=== PATIENT | male | born 1975 | race Two or more races ===

== ENCOUNTER 2016-04-05 19:01 | Emergency (ER) | payer MEDICAID ==
[~2016-04-05] VITALS: Ht 167.6 cm; Wt 81.6 kg
[~2016-04-05 19:01] MED LIST: IBUPROFEN600 MG ORAL; NKM
[2016-04-05 19:23] VITALS: BP 134/90
[2016-04-05] MEDS ORDERED: IBUPROFEN600 MG ORAL (20:30)
[2016-04-05] MEDS ORDERED: TRAMADOL HCL50 MG ORAL (20:30)
[2016-04-05 20:34] VITALS: BP 120/76
--- NOTE | 2016-04-05 22:47 | Emergency Room Report ---
History of Present Illness General Chief Complaint: Multiple Trauma/Fall Source: Patient Present Illness HPI The patient is a 40 yo M presenting for r mid back pain which occurred after falling backwards onto the edge of a stair. The patient denies hitting any other part of his body including his head and denies LOC. The patient states the pain is a 9/10 dull ache to this area and does not radiate. The patient states pain is worse with twisting motion and deep breaths. The patient denies trying any medications for this pain and denies SOB, CP, hemoptysis, cough, numbness/tingling, rash, dysuria, hematuria Allergies: Coded Allergies: No Known Allergies (Unverified , 04/28/12) Patient History Past Medical History: see triage record Pertinent Family History: none Reviewed Nursing Documentation: PMH: Agreed, PSxH: Agreed Nursing Documentation-PMH Past Medical History: No Stated History Review of Systems All Other Systems: negative except mentioned in HPI Physical Exam Vital Signs Date Time Temp Pulse Resp B/P Pulse Ox O2 Delivery O2 Flow Rate FiO2 04/05/16 19:13 98.1 91 18 134/90 98 Room Air Sp02 EP Interpretation: reviewed, normal General Appearance: no apparent distress, alert, GCS 15, non-toxic Head: normocephalic, atraumatic Eyes: bilateral eye PERRL, bilateral eye normal inspection ENT: hearing grossly normal, normal pharynx, no angioedema, normal voice Neck: full range of motion, supple/symm/no masses Respiratory: normal inspection, lungs clear, normal breath sounds, no wheezing , speaking full sentences, other - TTP over R posterior thoracic ribs, chest symmetrical Cardiovascular #1: regular rate, rhythm, no edema Gastrointestinal: normal bowel sounds, non tender, soft, non-distended, no guarding, no rebound Musculoskeletal: digits/nails normal, gait/station normal, normal range of motion, non-tender Neurologic: alert, oriented x3, responsive, motor strength/tone normal, sensory intact, normal gait, speech normal Psychiatric: judgement/insight normal, memory normal, mood/affect normal, no suicidal/homicidal ideation Skin: normal color, no rash, warm/dry, well hydrated Lymphatic: no adenopathy Medical Decision Making PA Attestation Dr. Bailey is my supervising physician. Patient management was discussed with my supervising physician Diagnostic Impression: Primary Impression: Contusion of rib on right side ER Course The patient is a 40 yo M presenting for r mid back pain which occurred after falling backwards onto the edge of a stair. Ddx considered include but not limited to sprain/strain, fracture, contusion, pneumothorax PE: vitals WNL. NAD There is TTP over the R posterior mid thoracic ribs. No midline TTP. Full AROM. Normal breath sounds. No ecchymosis. Xrays of ribs unremarkable. The patient will be DE'ed home with a prescription for motrin and tramadol. ER precautions given Other X-Ray Diagnostic Results Other X-Ray Diagnostic Results : X-Ray Ordered: R ribs Date: Apr 05, 2016 EP Interpretation: Yes Findings: no fractures, no dislocation, no soft tissue swelling Number of Views: 4 PA Scribe Text I'm acting as scribe for my supervising physician. My supervising physician's interpretation of the R rib xrays are there are no fractures, dislocations or soft tissue swelling. Last Vital Signs Date Time Temp Pulse Resp B/P Pulse Ox O2 Delivery O2 Flow Rate FiO2 04/05/16 20:34 98.0 04/05/16 20:34 80 14 120/76 100 Room Air Status: improved Disposition: HOME, SELF-CARE Condition: Improved Scripts Tramadol Hcl* (ULTRAM*) 50 Mg Tablet 50 MG ORAL Q6H Y for For Pain, #15 TAB 0 Refills Prov: ALEXIS HESS P.A. 04/05/16 Ibuprofen* (MOTRIN*) 600 Mg Tablet 600 MG ORAL Q8H Y for For Pain, #30 TAB 0 Refills Prov: ALEXIS HESS P.A. 04/05/16 Patient Instructions: Rib Contusion Additional Instructions: I discussed my findings with the patient. All questions and concerns have been answered. Treatment and medication compliance have been addressed. I advised the patient that they need to follow up with PMD in 3-5 days. Return to ED if pain remains or worsens, numbness or tingling occurs, new rash is noticed, fever is noticed, or if needed for any reason. Patient verbalized understanding of discharge instructions. ALEXIS HESS Apr 05, 2016 22:47
--- NOTE | 2016-04-06 10:25 | Diagnostic Imaging Report ---
Indications: Right rib cage pain. Technique: 4 views of the right ribs. Findings: Comparison: None. No fracture, lytic destruction, periosteal reaction, or other acute skeletal changes are identified. The overlying chest wall soft tissues, underlying pleura and pulmonary parenchyma are unremarkable. IMPRESSION: Negative right rib series.
== END 2016-04-05 20:37 | disposition home or self-care (01) ==
LOC: EMR 19:31
DX: S20.211A Contusion of right front wall of thorax, initial encounter (principal); W10.9XXA Fall (on) (from) unspecified stairs and steps, initial encounter; Y93.9 Activity, unspecified; Y92.9 Unspecified place or not applicable
CPT/HCPCS: 99284

== ENCOUNTER 2019-01-31 17:18 | Inpatient (IN) | payer MEDICAID ==
[~2019-01-31] VITALS: Ht 165.1 cm; Wt 81.6 kg
[~2019-01-31 17:18] MED LIST changes: +TRAMADOL HCL50 MG ORAL
[2019-01-31 17:24] VITALS: BP 127/86
--- NOTE | 2019-01-31 17:32 | NUR ---
ED Nurse Note: patient walked into ED from home c/o diffuse abdominal pain, non-radiating, denies v/d, c/o nasuea since last night. patient is alert awake x4 ambulatory, breathing unlabored and even, speaking in full sentences.
[2019-01-31] MEDS ORDERED: Morphine Sulfate 4mg/ml Inj (IV USE ONLY) IVP ONE (17:45)
[2019-01-31] MEDS ORDERED: Omnipaque-300 100ml vial INJ PRN (17:45)
[2019-01-31] MEDS ORDERED: DiphenhydrAMINE 50mg/ml Inj IVP ONE (17:45)
[2019-01-31 17:56] LABS: APPEARANCE,URINE SLIGHTLY CLOUDY; BILIRUBIN, URINE NEGATIVE (NEGATIVE); GLUCOSE, URINE (UA) NEGATIVE (NEGATIVE); KETONES,URINE 3+ (NEGATIVE); LEUKOCYTE ESTERASE ,URINE NEGATIVE (NEGATIVE); NITRITE,URINE NEGATIVE (NEGATIVE); PH,URINE 5 (4.5-8.0); PROTEIN,URINE 2+ (NEGATIVE); UROBILINOGEN,URINE NORMAL MG/DL (0.0-1.0)
[2019-01-31 17:57] LABS: HEMATOCRIT 45.2 % (42.0-52.0); HEMOGLOBIN 16.6 G/DL (14.2-18.0); MEAN CORPUSCULAR VOLUME 84 FL (80-99); PLATELET COUNT 257 K/UL (150-450); RED BLOOD COUNT 5.39 M/UL (4.70-6.10); RED CELL DISTRIBUTION WIDTH 9.5 % (11.6-14.8)
[2019-01-31 18:09] LABS: COLOR,URINE AMBER
--- NOTE | 2019-01-31 18:10 | Emergency Room Report ---
History of Present Illness General Chief Complaint: Abdominal Pain Source: Patient Present Illness HPI Patient presents with complaints of diffuse abdominal pain and vomiting ongoing since yesterday Denies any diarrhea denies any chest pain or shortness of breath pain is 10 out of 10 Patient is not able to localize the pain denies any back or flank pain denies any recent trauma He thinks he might have eaten something bad Denies any recent travel denies any rash He felt subjectively warm Denies any blood in the stool Allergies: Coded Allergies: No Known Allergies (Unverified , 04/28/12) Patient History Past Medical History: see triage record Reviewed Nursing Documentation: PMH: Agreed; PSxH: Agreed Nursing Documentation-PMH Past Medical History: No Stated History Review of Systems All Other Systems: negative except mentioned in HPI Physical Exam Vital Signs Date Time Temp Pulse Resp B/P (MAP) Pulse Ox O2 Delivery O2 Flow Rate FiO2 01/31/19 17:24 98.6 79 16 127/86 96 Room Air Sp02 EP Interpretation: reviewed, normal General Appearance: mild distress - Appears uncomfortable Head: normocephalic, atraumatic Eyes: bilateral eye PERRL, bilateral eye EOMI ENT: hearing grossly normal, normal pharynx, TMs + canals normal, uvula midline Neck: full range of motion, supple, no meningismus, no bony tend Respiratory: lungs clear, normal breath sounds, no rhonchi, no respiratory distress, no retraction, no accessory muscle use Cardiovascular #1: normal peripheral pulses, regular rate, rhythm, no edema, no gallop, no JVD, no murmur Gastrointestinal: normal bowel sounds, non tender - On palpation however patient points diffusely for the discomfort, soft, no mass, no organomegaly, non -distended, no guarding, no hernia, no pulsatile mass, no rebound Genitourinary: no CVA tenderness Musculoskeletal: normal inspection Neurologic: motor strength/tone normal, courtesy driver III-XII nml as tested, oriented x3 , sensory intact, responsive Psychiatric: mood/affect normal Skin: no rash Lymphatic: normal inspection, no adenopathy Procedures Critical Care Time Critical Care Time 40 minutes for presentation and diagnosis with life-threatening pathology discussion with family and patient, not including any procedural time Medical Decision Making Diagnostic Impression: Primary Impression: Acute appendicitis ER Course With the history exam and presentation, multiple differentials considered, including but not limited to appendicitis, gastritis, cholecystitis, diverticulitis Patient's white blood cell count is elevated CT at this time does reveal findings concerning for acute appendicitis Patient receiving further hydration General surgery has seen the patient in the ER and patient admitted for further care Labs Test 01/31/19 17:42 White Blood Count 15.0 K/UL (4.8-10.8) Red Blood Count 5.39 M/UL (4.70-6.10) Hemoglobin 16.6 G/DL (14.2-18.0) Hematocrit 45.2 % (42.0-52.0) Mean Corpuscular Volume 84 FL (80-99) Mean Corpuscular Hemoglobin 30.8 PG (27.0-31.0) Mean Corpuscular Hemoglobin Concent 36.7 G/DL (32.0-36.0) Red Cell Distribution Width 9.5 % (11.6-14.8) Platelet Count 257 K/UL (150-450) Mean Platelet Volume 6.3 FL (6.5-10.1) Neutrophils (%) (Auto) % (45.0-75.0) Lymphocytes (%) (Auto) % (20.0-45.0) Monocytes (%) (Auto) % (1.0-10.0) Eosinophils (%) (Auto) % (0.0-3.0) Basophils (%) (Auto) % (0.0-2.0) Urine Color Kallie Urine Appearance Slightly cloudy Urine pH 5 (4.5-8.0) Urine Specific [place] 1.025 (1.005-1.035) Urine Protein 2+ (NEGATIVE) Urine Glucose (UA) Negative (NEGATIVE) Urine Ketones 3+ (NEGATIVE) Urine Blood Negative (NEGATIVE) Urine Nitrite Negative (NEGATIVE) Urine Bilirubin Negative (NEGATIVE) Urine Ictotest Negative (NEGATIVE) Urine Urobilinogen Normal MG/DL (0.0-1.0) Urine Leukocyte Esterase Negative (NEGATIVE) Urine RBC 0 /HPF (0 - 0) Urine WBC 0-2 /HPF (0 - 0) Urine Squamous Epithelial Cells None /LPF (NONE/OCC) Urine Amorphous Sediment Many /LPF (NONE) Urine Bacteria Moderate /HPF (NONE) Urine Mucus Moderate /LPF (NONE/OCC) Sodium Level 137 MMOL/L (136-145) Potassium Level 3.9 MMOL/L (3.5-5.1) Chloride Level 100 MMOL/L (98-107) Carbon Dioxide Level 29 MMOL/L (21-32) Anion Gap 8 mmol/L (5-15) Blood Urea Nitrogen 14 mg/dL (7-18) Creatinine 0.9 MG/DL (0.55-1.30) Estimat Glomerular Filtration Rate > 60 mL/min (>60) Glucose Level 113 MG/DL (74-106) Calcium Level 9.1 MG/DL (8.5-10.1) Total Bilirubin 0.9 MG/DL (0.2-1.0) Aspartate Amino Transf (AST/SGOT) 23 U/L (15-37) Alanine Aminotransferase (ALT/SGPT) 56 U/L (12-78) Alkaline Phosphatase 94 U/L (46-116) Total Protein 8.2 G/DL (6.4-8.2) Albumin 4.2 G/DL (3.4-5.0) Globulin 4.0 g/dL Albumin/Globulin Ratio 1.0 (1.0-2.7) Lipase 64 U/L (73-393) Urine Opiates Screen Negative (NEGATIVE) Urine Barbiturates Screen Negative (NEGATIVE) Phencyclidine (PCP) Screen Negative (NEGATIVE) Urine Amphetamines Screen Negative (NEGATIVE) Urine Benzodiazepines Screen Negative (NEGATIVE) Urine Cocaine Screen Negative (NEGATIVE) Urine Marijuana (THC) Screen Negative (NEGATIVE) Rhythm Strip Diag. Results EP Interpretation: yes Rate: 80 Rhythm: NSR, no PVC's, no ectopy CT/MRI/US Diagnostic Results CT/MRI/US Diagnostic Results : Impression CT abdomen pelvisImpression: -Prominent appendiceal caliber 1 cm, with periappendiceal stranding, and appendiceal base appendicolith cyst with uncomplicated acute appendicitis. -Small and large bowel liquid contents as well as scattered areas of possible minimal small bowel wall thickening involving the distal/terminal ileum best seen axial images 70-72 with suggestion of tiny stranding around the terminal ileum likely due to adjacent acute appendicitis. This could be incidental, but can also be seen with an infectious or inflammatory enterocolitis, and can be correlated with clinical presentation. -Hepatic steatosis, correlate to exclude steatohepatitis. -Bibasilar atelectasis. Last Vital Signs Date Time Temp Pulse Resp B/P (MAP) Pulse Ox O2 Delivery O2 Flow Rate FiO2 12/11/19 17:56 79 16 Room Air 01/31/19 17:24 98.6 127/86 (100) 96 Status: improved Disposition: ADMITTED INPATIENT Condition: Serious Jaleesa Whitlock DO Jan 31, 2019 18:10
[2019-01-31 18:20] LABS: ANION GAP 8 mmol/L (5-15); BLOOD UREA NITROGEN 14 mg/dL (7-18); CALCIUM 9.1 MG/DL (8.5-10.1); CARBON DIOXIDE 29 MMOL/L (21-32); CHLORIDE 100 MMOL/L (98-107); CREATININE 0.9 MG/DL (0.55-1.30); POTASSIUM 3.9 MMOL/L (3.5-5.1); SODIUM 137 MMOL/L (136-145)
[2019-01-31 18:24] LABS: ALANINE AMINOTRANSFERASE 56 U/L (12-78); ALBUMIN 4.2 G/DL (3.4-5.0); ALKALINE PHOSPHATASE 94 U/L (46-116); ASPARTATE AMINO TRANSFERASE 23 U/L (15-37); BILIRUBIN,TOTAL 0.9 MG/DL (0.2-1.0)
--- NOTE | 2019-01-31 19:08 | Diagnostic Imaging Report ---
Indication: Abdominal pain Technique: CT of the abdomen and pelvis utilizing automated exposure control with intravenous contrast. Venous scanning performed. Axial, sagittal and coronal reformats presented. CT dose: Total DLP 1656.3 mGycm; CTDI vol 26.2 mGy Comparison: None Findings: Dependent atelectatic changes noted in the lung bases. Heart size appears within the upper limits for normal. No pericardial effusion. There is decreased attenuation of the liver relative to the spleen suggesting hepatic steatosis. Hepatic contour is smooth. No focal hepatic mass lesion appreciated. Hepatic veins and portal veins are patent. There are no CT evident gallstones, pericholecystic inflammatory changes or biliary duct dilatation. Spleen, adrenal glands and pancreas unremarkable in appearance. Kidneys enhance symmetrically. There is no urinary tract stone, hydronephrosis or perinephric stranding. Bladder is unremarkable for degree of underdistention. There is abnormal enlargement of the appendix measuring up to 11 mm at the base (axial images 61-67). There is hyperenhancement of the wall and some periappendiceal inflammatory changes. Findings are compatible with an acute appendicitis. There is a probable appendicolith at the base of the appendix. There is no evidence of abscess formation. No evidence of free intraperitoneal air. No small bowel obstruction. The abdominal aorta is normal in caliber. Some small mesenteric lymph nodes are noted, many cluster the right lower quadrant. These are likely reactive in etiology. No acute osseous abnormality identified. There are mild degenerative changes of the lower lumbar spine. No subcutaneous fluid collection or abscess. IMPRESSION: * Findings compatible with an acute appendicitis as above. No evidence of abscess formation or perforation. * Findings suggesting hepatic steatosis. This corresponds with the preliminary report by the teleradiology service. The CT scanner at [facility] is accredited by the [employer] and the scans are performed using protocols designed to limit radiation exposure to as low as reasonably achievable to attain images of sufficient resolution adequate for diagnostic evaluation.
--- NOTE | 2019-01-31 19:21 | NUR ---
HAND-OFF: Report given to Alyssia MURRAY.
--- NOTE | 2019-01-31 19:42 | Consultation ---
History of Present Illness General Date patient seen: Jan 31, 2019 Reason for Hospitalization: Abdominal Pain Present Illness HPI 43M otherwise healthy presented to ED at [facility] c/o abdominal pain for 1 days. States pain began yesterday generalized abdominal cramping 6-8/10 without radiation. nausea but no emesis. anorexia from pain. in ED noted to have leukocytosis and CT consistent with acute appy. surgery called to evaluate. patient seen, chart reviewed, patient examined. Allergies: Coded Allergies: No Known Allergies (Unverified , 04/28/12) Medication History Scheduled No Known Medications* (NKM - No Known Medications*), 0 ., (Reported) Scheduled PRN Ibuprofen* (Motrin*), 600 MG ORAL Q8H PRN for For Pain Tramadol Hcl* (Ultram*), 50 MG ORAL Q6H PRN for For Pain Patient History History Provided By: Patient Healthcare decision maker Resuscitation status Advanced Directive on File Past Medical/Surgical History Past Medical/Surgical History: (1) Acute appendicitis (2) Sprain of knee (3) Contusion of knee (4) Contusion of rib on right side Review of Systems Review of Symptoms General ROS: no weight loss or fever Psychological ROS: no depression or mood changes, no memory loss Ophthalmic ROS: no visual changes or eye irritation ENT ROS: no nasal congestion, hearing loss, dizziness Allergy and Immunology ROS: no allergic symptoms or urticaria Hematological and Lymphatic ROS: no swollen glands, unusual bleeding or bruising Endocrine ROS: no polyuria, polydipsia, weight changes, temperature intolerance Respiratory ROS: no cough, shortness of breath, or wheezing Cardiovascular ROS: no chest pain or dyspnea on exertion Gastrointestinal ROS: abdominal pain, bright red blood in stool. Musculoskeletal ROS: no myalgias or arthralgias Neurological ROS: no TIA or stroke symptoms Dermatological ROS: no new or changing skin lesions, rashes or pruritis Physical Exam Physical Exam General appearance: alert, cooperative, no distress, appears stated age Head: Normocephalic, without obvious abnormality, atraumatic Eyes: conjunctivae/corneas clear. PERRL, EOM's intact. Fundi benign Throat: Lips, mucosa, and tongue normal. Teeth and gums normal Neck: supple, symmetrical, trachea midline, no adenopathy, thyroid: not enlarged, symmetric, no tenderness/mass/nodules, no carotid bruit and no JVD Lungs: clear to auscultation bilaterally Heart: regular rate and rhythm, S1, S2 normal, no murmur, click, rub or gallop Abdomen: soft, RLQ-tender with guarding, no rebound. Bowel sounds normal. No masses, no organomegaly Extremities: extremities normal, atraumatic, no cyanosis or edema Pulses: 2+ and symmetric Skin: Skin color, texture, turgor normal. No rashes or lesions Neurologic: Grossly normal Last 24 Hour Vital Signs Date Time Temp Pulse Resp B/P (MAP) Pulse Ox O2 Delivery O2 Flow Rate FiO2 01/31/19 18:18 98.6 01/31/19 17:56 79 16 Room Air 01/31/19 17:24 98.6 79 16 127/86 (100) 96 Room Air 01/31/19 17:24 98.6 79 16 127/86 96 Room Air Laboratory Tests Test 01/31/19 17:42 White Blood Count 15.0 K/UL (4.8-10.8) H Red Blood Count 5.39 M/UL (4.70-6.10) Hemoglobin 16.6 G/DL (14.2-18.0) Hematocrit 45.2 % (42.0-52.0) Mean Corpuscular Volume 84 FL (80-99) Mean Corpuscular Hemoglobin 30.8 PG (27.0-31.0) Mean Corpuscular Hemoglobin Concent 36.7 G/DL (32.0-36.0) H Red Cell Distribution Width 9.5 % (11.6-14.8) L Platelet Count 257 K/UL (150-450) Mean Platelet Volume 6.3 FL (6.5-10.1) L Neutrophils (%) (Auto) % (45.0-75.0) Lymphocytes (%) (Auto) % (20.0-45.0) Monocytes (%) (Auto) % (1.0-10.0) Eosinophils (%) (Auto) % (0.0-3.0) Basophils (%) (Auto) % (0.0-2.0) Neutrophils % (Manual) Pending Lymphocytes % (Manual) Pending Platelet Estimate Pending Platelet Morphology Pending Urine Color Kallie Urine Appearance Slightly cloudy Urine pH 5 (4.5-8.0) Urine Specific [place] 1.025 (1.005-1.035) Urine Protein 2+ (NEGATIVE) H Urine Glucose (UA) Negative (NEGATIVE) Urine Ketones 3+ (NEGATIVE) H Urine Blood Negative (NEGATIVE) Urine Nitrite Negative (NEGATIVE) Urine Bilirubin Negative (NEGATIVE) Urine Ictotest Negative (NEGATIVE) Urine Urobilinogen Normal MG/DL (0.0-1.0) Urine Leukocyte Esterase Negative (NEGATIVE) Urine RBC 0 /HPF (0 - 0) Urine WBC 0-2 /HPF (0 - 0) Urine Squamous Epithelial Cells None /LPF (NONE/OCC) Urine Amorphous Sediment Many /LPF (NONE) H Urine Bacteria Moderate /HPF (NONE) H Urine Mucus Moderate /LPF (NONE/OCC) H Sodium Level 137 MMOL/L (136-145) Potassium Level 3.9 MMOL/L (3.5-5.1) Chloride Level 100 MMOL/L (98-107) Carbon Dioxide Level 29 MMOL/L (21-32) Anion Gap 8 mmol/L (5-15) Blood Urea Nitrogen 14 mg/dL (7-18) Creatinine 0.9 MG/DL (0.55-1.30) Estimat Glomerular Filtration Rate > 60 mL/min (>60) Glucose Level 113 MG/DL (74-106) H Calcium Level 9.1 MG/DL (8.5-10.1) Total Bilirubin 0.9 MG/DL (0.2-1.0) Aspartate Amino Transf (AST/SGOT) 23 U/L (15-37) Alanine Aminotransferase (ALT/SGPT) 56 U/L (12-78) Alkaline Phosphatase 94 U/L (46-116) Total Protein 8.2 G/DL (6.4-8.2) Albumin 4.2 G/DL (3.4-5.0) Globulin 4.0 g/dL Albumin/Globulin Ratio 1.0 (1.0-2.7) Lipase 64 U/L (73-393) L Urine Opiates Screen Negative (NEGATIVE) Urine Barbiturates Screen Negative (NEGATIVE) Phencyclidine (PCP) Screen Negative (NEGATIVE) Urine Amphetamines Screen Negative (NEGATIVE) Urine Benzodiazepines Screen Negative (NEGATIVE) Urine Cocaine Screen Negative (NEGATIVE) Urine Marijuana (THC) Screen Negative (NEGATIVE) Height (Feet): 5 Height (Inches): 5.00 Weight (Pounds): 180 Medications Current Medications Medications (Trade) Dose Ordered Sig/Noa Route PRN Reason Start Time Stop Time Status Last Admin Dose Admin Iohexol (OMNIPAQUE-300 100ml) 100 ml NOW PRN INJ Radiology Procedure 01/31/19 17:45 02/02/19 17:34 Assessment/Plan Problem List: (1) Acute appendicitis Assessment & Plan: acute uncomplicated appendicitis afebrile, HD Stable leukocytosis RLQ tender CT consistent with acute appy npo iv fluids iv abx consent to OR for lap vs open appy thank you ICD Codes: K35.80 - Unspecified acute appendicitis SNOMED: [id number] Kwan Boggs Jan 31, 2019 19:42
--- NOTE | 2019-01-31 19:44 | Pre-Procedure Note/Attestation ---
Pre-Procedure Note/Attestation Complete Prior to Procedure Procedure Narrative: laparoscopic appendectomy possible open Indications for Procedure Pre-Operative Diagnosis: acute appendicitis Attestation I attest that I discussed the nature of the procedure; its benefits; risks and complications; and alternatives (and the risks and benefits of such alternatives ), prior to the procedure, with the patient (or the patient's legal senior human resources representative). I attest that, if there was a reasonable possibility of needing a blood transfusion, the patient (or the patient's legal senior human resources representative) was given the [facility] standardized written summary, pursuant to the Sathya Ari Blood Safety Act ([place] Health and Safety Code # 1645, as amended). I attest that I re-evaluated the patient just prior to the surgery and that there has been no change in the patient's H&P, except as documented below: Kwan Boggs Jan 31, 2019 19:44
[2019-01-31] MEDS ORDERED: Morphine Sulfate 4mg/ml Inj (IV USE ONLY) IVP PRN (19:45)
[2019-01-31] MEDS ORDERED: Morphine Sulfate 2mg/ml Inj(IV/IM USE ONLY) IVP PRN (19:45)
[2019-01-31] MEDS ORDERED: Mylanta II UD 30ml ORAL PRN (19:45)
[2019-01-31] MEDS ORDERED: Milk of Magnesia 30ml Ud ORAL PRN (19:45)
[2019-01-31] MEDS ORDERED: LORazepam 1mg tab ORAL PRN (19:45)
[2019-01-31 20:33] VITALS: BP 132/82
--- NOTE | 2019-01-31 20:38 | NUR ---
TRANSFER TO FLOOR: Patient transferred to [facility] as ordered, per . Report given to TREVOR Ring
--- NOTE | 2019-01-31 20:38 | NUR ---
ED Nurse Note: Report given to TREVOR Ring
--- NOTE | 2019-01-31 20:50 | NUR ---
NURSE NOTES: patient transferred the 3E from ER. Admission Assessment done. A/O x 4. Patient c/o abdominal pain and given pain medication as ordered. VS is stable. bed is lowest position. Call light within reach. Will continue to monitor.
[2019-01-31 21:00] VITALS: BP 114/73
[2019-01-31] MEDS ORDERED: cefTRIAXone 1 GM in D5W 55 ML IVPB SCH (22:00)
[2019-01-31] MEDS: Docusate 100mg cap ORAL SCH (22:03)
[2019-01-31] MEDS ORDERED: Piperacillin/Tazobactam 3.375 GM in NS 110 ML IVPB SCH (23:00)
[2019-01-31] MEDS: D5 1/2NS w/KCl 20mEq 1,000 ML IV SCH (23:45)
[2019-02-01] VITALS (17 sets, daily range): BP systolic 102–153; BP diastolic 64–88
[2019-02-01 05:57] LABS: BASOPHILS % (AUTO) 0.3 % (0.0-2.0); LYMPHOCYTES % (AUTO) 12.2 % (20.0-45.0); MEAN CORPUSCULAR VOLUME 87 FL (80-99); MONOCYTES % (AUTO) 6.4 % (1.0-10.0); PLATELET COUNT 242 K/UL (150-450); RED BLOOD COUNT 4.84 M/UL (4.70-6.10); RED CELL DISTRIBUTION WIDTH 10.6 % (11.6-14.8); WHITE BLOOD COUNT 15.5 K/UL (4.8-10.8)
[2019-02-01 06:07] LABS: ANION GAP 7 mmol/L (5-15); BLOOD UREA NITROGEN 12 mg/dL (7-18); CALCIUM 8.9 MG/DL (8.5-10.1); CARBON DIOXIDE 29 MMOL/L (21-32); CHLORIDE 103 MMOL/L (98-107); POTASSIUM 3.8 MMOL/L (3.5-5.1); SODIUM 139 MMOL/L (136-145)
--- NOTE | 2019-02-01 06:51 | NUR ---
NURSE NOTES: Patient is asleep. VS is stable. Got consents for surgery from patient. no c/o distress and pain level is 1/10. bed is lowest position. Call light within reach. Will continue to monitor.
--- NOTE | 2019-02-01 07:30 | NUR ---
NURSE NOTES: Pt lying in bed w/family at bedside, bed in lowest position, and call light within reach. Pt A&Ox4, VSS, and in no apparent distress. IV site intact/asymptomatic w/IVF infusing and skin intact. Pt scheduled to have surgery today but time not yet known. Will continue to monitor.
--- NOTE | 2019-02-01 07:35 | NUR ---
HAND-OFF: Report given to TREVOR Pérez. Pt in stable condition.
[2019-02-01] MEDS: D5 1/2NS w/KCl 20mEq 1,000 ML IV SCH ×2 (08:00→17:15)
[2019-02-01] MEDS: Docusate 100mg cap ORAL SCH ×2 (09:00→21:40)
--- NOTE | 2019-02-01 09:05 | Anethesia Preoperative Eval ---
Anesthesia Pre-op PMH/ROS General Date of Evaluation: Feb 01, 2019 Time of Evaluation: 09:06 Anesthesiologist: Zohreh Haywood CRNA ASA Score: ASA 2 Mallampati Score Class I : Soft palate, uvula, fauces, pillars visible Class II: Soft palate, uvula, fauces visible Class III: Soft palate, base of uvula visible Class IV: Only hard plate visible Mallampati Classification: Class II Surgeon: Ambrose Diagnosis: acute appendicitis Surgical Procedure: Laparoscopic appendectomy Anesthesia History: none Family History: no anesthesia problems Allergies: Coded Allergies: No Known Allergies (Unverified , 04/28/12) Medications: see eMAR Patient NPO?: Yes NPO Date: Jan 31, 2019 NPO Time: 0000 Past Medical History Cardiovascular: Denies: HTN, CAD, [place], valve dz, arrhythmia, other Pulmonary: Denies: asthma, COPD, AVILA, other Gastrointestinal/Genitourinary: Reports: other - acute appendicitis; Denies: GERD, CRI, ESRD Neurologic/Psychiatric: Denies: dementia, CVA, depression/anxiety, TIA, other Endocrine: Denies: DM, hypothyroidism, steroids, other HEENT: Denies: cataract (L), cataract (R), glaucoma, [place] (L), [place] (R), other Hematology/Immune: Denies: anemia, DVT, bleeding disorder, other Musculoskeletal/Integumentary: Denies: OA, RA, DJD, DDD, edema, other Other: obesity PMH Narrative: as noted above PSxH Narrative: eye surgery Anesthesia Pre-op Phys. Exam Physician Exam Last Vital Signs Date Time Temp Pulse Resp B/P (MAP) Pulse Ox O2 Delivery O2 Flow Rate FiO2 02/01/19 08:00 98.5 93 18 108/72 (84) 98 01/31/19 21:18 Room Air Constitutional: NAD Neurologic: other - alert and oriented Cardiovascular: RRR Respiratory: CTA Gastrointestinal: S/NT/ND Airway Exam Mallampati Score: Class II MO: full - heavy lewis Neck: FROM TMD: > 3 FB ROM: full Teeth: intact Dentures: no upper, no lower Anesthesia Pre-op A/P Labs Hematology Test 01/31/19 17:42 02/01/19 05:31 White Blood Count 15.0 K/UL (4.8-10.8) H 15.5 K/UL (4.8-10.8) H Red Blood Count 5.39 M/UL (4.70-6.10) 4.84 M/UL (4.70-6.10) Hemoglobin 16.6 G/DL (14.2-18.0) 15.0 G/DL (14.2-18.0) Hematocrit 45.2 % (42.0-52.0) 42.0 % (42.0-52.0) Mean Corpuscular Volume 84 FL (80-99) 87 FL (80-99) Mean Corpuscular Hemoglobin 30.8 PG (27.0-31.0) 31.0 PG (27.0-31.0) Mean Corpuscular Hemoglobin Concent 36.7 G/DL (32.0-36.0) H 35.8 G/DL (32.0-36.0) Red Cell Distribution Width 9.5 % (11.6-14.8) L 10.6 % (11.6-14.8) L Platelet Count 257 K/UL (150-450) 242 K/UL (150-450) Mean Platelet Volume 6.3 FL (6.5-10.1) L 6.6 FL (6.5-10.1) Neutrophils (%) (Auto) % (45.0-75.0) 81.0 % (45.0-75.0) H Lymphocytes (%) (Auto) % (20.0-45.0) 12.2 % (20.0-45.0) L Monocytes (%) (Auto) % (1.0-10.0) 6.4 % (1.0-10.0) Eosinophils (%) (Auto) % (0.0-3.0) 0.0 % (0.0-3.0) Basophils (%) (Auto) % (0.0-2.0) 0.3 % (0.0-2.0) Differential Total Cells Counted 100 Neutrophils % (Manual) 90 % (45-75) H Lymphocytes % (Manual) 8 % (20-45) L Monocytes % (Manual) 2 % (1-10) Eosinophils % (Manual) 0 % (0-3) Basophils % (Manual) 0 % (0-2) Band Neutrophils 0 % (0-8) Platelet Estimate Adequate Platelet Morphology Normal Red Blood Cell Morphology Normal Coagulation Test 02/01/19 05:31 Prothrombin Time 10.9 SEC (9.30-11.50) Prothromb Time International Ratio 1.0 (0.9-1.1) Activated Partial Thromboplast Time 29 SEC (23-33) Chemistry Test 01/31/19 17:42 02/01/19 05:31 Sodium Level 137 MMOL/L (136-145) 139 MMOL/L (136-145) Potassium Level 3.9 MMOL/L (3.5-5.1) 3.8 MMOL/L (3.5-5.1) Chloride Level 100 MMOL/L (98-107) 103 MMOL/L (98-107) Carbon Dioxide Level 29 MMOL/L (21-32) 29 MMOL/L (21-32) Anion Gap 8 mmol/L (5-15) 7 mmol/L (5-15) Blood Urea Nitrogen 14 mg/dL (7-18) 12 mg/dL (7-18) Creatinine 0.9 MG/DL (0.55-1.30) 1.0 MG/DL (0.55-1.30) Estimat Glomerular Filtration Rate > 60 mL/min (>60) > 60 mL/min (>60) Glucose Level 113 MG/DL (74-106) H 121 MG/DL (74-106) H Calcium Level 9.1 MG/DL (8.5-10.1) 8.9 MG/DL (8.5-10.1) Total Bilirubin 0.9 MG/DL (0.2-1.0) Aspartate Amino Transf (AST/SGOT) 23 U/L (15-37) Alanine Aminotransferase (ALT/SGPT) 56 U/L (12-78) Alkaline Phosphatase 94 U/L (46-116) Total Protein 8.2 G/DL (6.4-8.2) Albumin 4.2 G/DL (3.4-5.0) Globulin 4.0 g/dL Albumin/Globulin Ratio 1.0 (1.0-2.7) Lipase 64 U/L (73-393) L Risk Assessment & Plan Assessment: ASA 3, ok to proceed Plan: GETA Status Change Before Surgery: No Pre-Antibiotics Drug: TBD Given Within 1 Hr of Incision: Yes Koempel,Zohreh M[employer]IM[employer] TECHNICIAN Feb 01, 2019 09:05
[2019-02-01] MEDS ORDERED: Midazolam 2mg/2ml Inj ONE (09:13)
[2019-02-01] MEDS ORDERED: Lidocaine 1% MPF 10mg/ml 5ml ONE (09:13)
[2019-02-01] MEDS ORDERED: fentaNYL 100 mcg/2 mL IV ONE ×2 (09:13→09:45)
[2019-02-01] MEDS ORDERED: Propofol 200mg/20ml IV ONE (09:13)
[2019-02-01] MEDS: Piperacillin/Tazobactam 3.375 GM in NS 110 ML IVPB SCH ×2 (09:20→17:15)
[2019-02-01] MEDS ORDERED: Morphine Sulfate 10mg/ml Inj ONE (09:35)
--- NOTE | 2019-02-01 10:04 | Immediate Post-Op Evaluation ---
Immediate Post-Op Evalulation Immediate Post-Op Evalulation Procedure: Laparoscopic appendectomy Date of Evaluation: Feb 01, 2019 Time of Evaluation: 10:43 IV Fluids: LR 1000 ml Estimated Blood Loss: 30 Blood Pressure Systolic: 153 Blood Pressure Diastolic: 86 Pulse Rate: 108 Respiratory Rate: 24 O2 Sat by Pulse Oximetry: 100 Temperature (Fahrenheit): 100.2 Pain Score (1-10): 4 Nausea: No Vomiting: No Complications none Patient Status: awake, patent, extubated Hydration Status: adequate Drug: Zosyn 3.375 gm IV Given Within 1 Hr of Incision: Yes Time Given: 09:15 Zohreh Haywood CRNA Feb 01, 2019 10:04
[2019-02-01] MEDS ORDERED: Labetalol 5mg/ml 20ml vial IV PRN (10:15)
[2019-02-01] MEDS ORDERED: Hydromorphone 0.5mg/0.5ml inj IVP PRN (10:15)
--- NOTE | 2019-02-01 10:50 | Brief Operative Note ---
Immediate Post Operative Note Operative Note Pre-op Diagnosis: acute appendicitis Procedure: laparoscopic appendectomy Post-op Diagnosis: same as pre-op Surgeon: wood Anesthesiologist: ophelia Anesthesia: general, local Specimen: yes Complications: none Condition: stable Fluids: see records Estimated Blood Loss: minimal Drains: none Implant(s) used?: No Kwan Boggs Feb 01, 2019 10:50
[2019-02-01] MEDS ORDERED: Rocuronium Bromide 50mg/5ml Inj IV ONE (11:44)
--- NOTE | 2019-02-01 11:45 | NUR ---
NURSE NOTES: Pt came up to unit from PACU via hospital bed in stable condition. Pt A&Ox4; VSS; on 2L NC; and surgical lap sites x 3 C/D/I. Reoriented pt to room; pt has no complaints of pain at this time. Will continue to monitor.
--- NOTE | 2019-02-01 15:17 | NUR ---
CASE MANAGEMENT:REVIEW 43 YR OLD MALE PRESENTED TO ER CC: ABDOMINAL PAIN AND VOMITING SI: ACUTE APPENDICITIS 98.6 79 16 127/86 96% ON RA WBC=15.0 IS: IV ZOFRAN IV MORPHINE 1L NS BOLUS IV BENADRYL : TO MED/SURG 02/01/19 SI: ACUTE APPENDICITIS 98.0 97 18 102/69 97% ON RA WBC+15.5 IS: TO SURGERY FOR: LAPAROSCOPIC APPENDECTOMY IV ZOSYN Q8HRS IVF@100/HR IV PEPCID Q12 IV MORPHINE Q4HRS PRN : MED/SURG STATUS
--- NOTE | 2019-02-01 19:30 | NUR ---
NURSE NOTES: Received report from TREVOR Pérez. Patient is resting in bed with family at side. Fluids running to IV intact and asymptomatic. Abdominal dressing is steri strips and Dermabond to 3 surgical sites c/d/i. No c/o SOB on room air. Patient reports lack of appetite and ate 25% of dinner. He ate small amount of food from home. Will continue plan of care.
--- NOTE | 2019-02-01 19:41 | NUR ---
HAND-OFF: Report given to TREVOR Boland. Endorsed that pt has yet to eat d/t lack of hunger and [id number] abdominal discomfort.
[2019-02-01] MEDS ORDERED: Tubing IV Secondary IV ONE (22:36)
[2019-02-02] VITALS: BP 102/70
[2019-02-02] MEDS: Piperacillin/Tazobactam 3.375 GM in NS 110 ML IVPB SCH ×2 (00:39→09:26)
--- NOTE | 2019-02-02 03:45 | History and Physical Report ---
DATE OF ADMISSION: 01/31/2019 REASON FOR ADMISSION: Abdominal pain. HISTORY OF PRESENT ILLNESS: This 43-year-old male presented to the emergency room late last evening with a 1 day's duration of abdominal pain. He noted nausea, no emesis and anorexia. Some leukocytosis was noted. A CAT scan consistent with acute appendicitis was seen. The patient was placed on empiric antimicrobials and bowel rest. He was seen in surgical consultation. Plans for appendectomy this morning are in place. PAST MEDICAL HISTORY: Rib contusion, knee contusion, and knee sprain. MEDICATIONS: Reviewed and reconciled. ALLERGIES: None known. SOCIAL HISTORY: Negative for smoking, alcohol, or substance abuse. REVIEW OF SYSTEMS: A 10-point review of systems is otherwise unremarkable. PHYSICAL EXAMINATION: VITAL SIGNS: Afebrile, blood pressure 127/86, pulse 79, and respiratory rate 16. LUNGS: Clear. CARDIAC: Regular. ABDOMEN: Soft. Mildly tender in the right lower quadrant. EXTREMITIES: No edema. SKIN: Intact. NEUROLOGIC: Nonfocal. LABORATORY DATA: Labs reviewed. White count 15, hemoglobin 16. IMPRESSION: Acute appendicitis. PLAN: 1. Continue hydration. 2. NPO status. 3. Empiric antimicrobials. 4. Laparoscopic appendectomy planned this morning. Neil Singh M.D. DR: AMANDA JOB#: [id number] CC:
[2019-02-02 04:00] VITALS: BP 113/70
[2019-02-02] MEDS: D5 1/2NS w/KCl 20mEq 1,000 ML IV SCH (04:12)
--- NOTE | 2019-02-02 04:15 | Operative Note - Dictated ---
DATE OF OPERATION: 02/01/2019 PREOPERATIVE DIAGNOSIS: Acute appendicitis. POSTOPERATIVE DIAGNOSIS: Acute appendicitis. OPERATION PERFORMED: Laparoscopic appendectomy. ATTENDING SURGEON: Kwan Boggs M.D. TELEMETRY TECHNICIAN: None. ANESTHESIOLOGIST: Zohreh Haywood CRNA ANESTHESIA: General GETA plus local. ESTIMATED BLOOD LOSS: Minimal. IV FLUIDS: Please see anesthesia records. COMPLICATIONS: None. DRAINS: None. COUNTS: Sponge and needle count correct x2. WOUND CLASSIFICATION: Class III. ANTIBIOTICS: The patient on scheduled IV Zosyn for acute active infectious process. SPECIMENS: Appendix sent to pathology for review. INDICATIONS FOR PROCEDURE: The patient is a 43-year-old male who presented to the emergency department at [facility] complaining of worsening right lower quadrant abdominal pain and lower abdominal pain with associated nausea, onset approximately one day ago and worsening since. Leukocytosis and CT scan consistent with acute uncomplicated appendicitis. Risks, benefits, and alternatives were discussed with the patient in detail who expressed understanding and consented to surgery which was performed on 02/01/2019. OPERATIVE NOTE: The patient was taken to the operating room and placed on the operating table in supine position with left arm tucked. All bony prominences were well padded. SCDs placed. Preoperative time-out taken identifying the patient, procedure, operative staff, surgical staff. General anesthesia was induced and the patient was intubated. No Brumfield catheter was inserted given the patient voided prior to entering the operating room. The patient is already on scheduled IV antibiotics. The abdomen was clipped, prepped, draped in standard surgical fashion. An infraumbilical incision was made after local anesthetic was infiltrated and carried down to the fascia, which was elevated and incised. Entry into the abdomen was obtained using the open Ezequeil technique without complication. A 12 mm Ezequiel trocar was inserted and the abdomen was insufflated to 12 to 15 mmHg. The patient tolerated the insufflation well. Laparoscope was inserted and the abdomen inspected. At this time, it was clearly evident that the patient had significant adhesions in the pelvis. The patient did not have any history of prior abdominal surgeries or interventions or reasons for adhesions and this seemed to be likely congenital in nature. The omentum was densely adhesed into the pelvis and somewhat in the right lower quadrant, did not seem to be directly related to the appendix and the acute appendicitis given that appendix is not directly overlying the appendix at this time. It was noted that the appendix was almost retrocecal and behind the loop of small bowel. At this time, secondary trocar placement was re-evaluated and decision was made to place an 11 mm port in the left lower quadrant. Laparoscopic nori and cautery were used in the next 30 minutes. Lysis of adhesions was performed to allow release of the omentum from the anterior abdominal wall to allow mobilization of the omentum so that the surgery could be proceeded with grasping the appendix and identifying it with all the incisions. Once this was completed, secondary trocar was placed in the suprapubic area 5 mm. The cecum was identified. Tenia followed down to the confluence where the base appendix noted. The appendix noted to be almost considerably retrocecal as well as behind the loop of the mesentery of the small bowel and terminal ileum. The small bowel was retracted medially and the appendix was grasped, elevated and a window was made between the appendix and mesoappendix at the base. A laparoscopic linear stapler was used and the base was divided. Following this, a laparoscopic linear stapler was required to divide the thickened mesoappendix. There was still some oozing from the mesoappendix staple line and laparoscopic 10 mm clip. A clip apply was used to place multiple clips until hemostasis achieved. Once hemostasis was achieved, the staple lines were identified. Good hemostasis and stable viable base of the appendix staple line noted. The appendix was placed in endoscopic retrieval bag and removed from the abdomen using the umbilical port site. The right lower quadrant and pelvis were irrigated and suctioned. At this time, we began the conclusion of our procedure. Secondary trocars removed under direct visualization followed by the umbilical trocar site. The umbilical trocar site fascia and left lower quadrant port site fascia were reapproximated using [id number] #0 Vicryl suture. Remaining skin incisions were cleansed and reapproximated using 4-0 Monocryl subcuticular interrupted sutures. Skin glue and Steri-Strips were applied. The patient tolerated procedure well, was extubated, and taken to postanesthetic care in stable condition. Kwan Boggs M.D. DR: Danni JOB#: [id number] CC: JORGE
--- NOTE | 2019-02-02 07:38 | NUR ---
NURSE NOTES: Received report from TREVOR Boland. Rounding done with outgoing nurse. Pt a/o x 4, in bed. No respiratory distress noted. Denies any pain at this time. Lt AC IV access is intact. Surgical abd. site is C/D/I. Bed in lowest position, call light within reach. Will continue to monitor.
--- NOTE | 2019-02-02 07:39 | NUR ---
HAND-OFF: Report given to Derek Acosta RN. Patient is stable.
[2019-02-02 08:00] VITALS: BP 105/70
[2019-02-02] MEDS: Docusate 100mg cap ORAL SCH (09:25)
[2019-02-02 12:00] VITALS: BP 134/79
[2019-02-02] MEDS ORDERED: ACETAMINOPHEN-1 EAC1 ORAL (12:52)
[2019-02-02] MEDS ORDERED: COLACE100 MG ORAL (12:52)
--- NOTE | 2019-02-02 13:55 | NUR ---
NURSE NOTES: Discharge instruction was given to pt/family including discharge meds. Belongings checked and pt signed. Pt a/o x 4 and discharged accompanied by family.
[2019-02-02 16:28] VITALS: BP 134/70
--- NOTE | 2019-02-02 16:28 | 48 Hour Post Anesthesia Eval ---
Post Anesthesia Evaluation Procedure: Laparoscopic appendectomy Date of Evaluation: Feb 02, 2019 Time of Evaluation: 16:28 Blood Pressure Systolic: 134 0: 70 Pulse Rate: 70 O2 Sat by Pulse Oximetry: 98 Airway: patent Nausea: No Vomiting: No Hydration Status: adequate Mental Status/LOC: patient returned to baseline Post-Anesthesia Complications: none Follow-up care needed: N/A Paulina Painting CRNA Feb 02, 2019 16:28
--- NOTE | 2019-02-04 11:46 | Discharge Summary ---
Discharge Summary Discharge Summary _ DATE OF ADMISSION: 01/31/2019 DATE OF DISCHARGE: 02/02/2019 DISCHARGED BY: Dr. Neil Randolph CONSULTANTS: Dr. Kwan Boggs BRIEF HOSPITAL COURSE: Patient is a 43-year-old male, who presented to the ED complaining of abdominal pain and vomiting since the day prior. He denied any diarrhea. Denied chest pain. Denied shortness of breath. Pain is 10/10. He was unable to localize the pain. He denies any back or flank pain. Denies any recent trauma. Denies blood in the stool. Upon evaluation at the ED, vital signs were stable. Patient was afebrile. Blood work showed leukocytosis of 15. Hemoglobin and hematocrit were stable. Electrolytes were normal. LFTs normal. Lipase normal. Urinalysis was negative. Urine toxicology negative. CT of the abdomen and pelvis showed periappendiceal stranding and appendiceal base appendicolith cyst with uncomplicated acute appendicitis. He was given morphine for pain. He was given IV hydration. He was admitted for acute appendicitis. Surgeon was consulted. Physical examination showed right lower quadrant tender with guarding, no rebound. He was started on IV antibiotics. Consent was obtained for surgery. Patient underwent laparoscopic appendectomy. Patient tolerated procedure well. Postoperatively, he was continued on IV antibiotics. He was given pain management. He was placed on SCDs for DVT prophylaxis. He was encouraged use of incentive spirometer. Diet was advanced. He was tolerating diet well. He was eventually cleared by surgery for discharge home. FINAL DIAGNOSES: Acute appendicitis status post laparoscopic appendectomy DISPOSITION: Patient was discharged home. DISCHARGE MEDICATIONS: Refer to Discharge Medication List. DISCHARGE INSTRUCTIONS: Follow-up in a week. I have been assigned to complete a discharge summary on this account, I was not involved with the patient's management.--LORENZO Alfaro Jacqueline Robles NP Feb 04, 2019 11:46
== END 2019-02-02 14:00 | disposition home or self-care (01) | DRG 234 ==
LOC: EMR 17:57 → EDBEDREQ 20:17 → 3E 20:56
PROC: 0DTJ4ZZ Resection of Appendix, Percutaneous Endoscopic Approach (ICD-10-PCS; principal; 2019-02-01 09:00)
DX: K35.80 Unspecified acute appendicitis (principal)
CPT/HCPCS: 36415; 74177; 80048; 80053; 80307; 81003; 83690; 85007; 85025; 85610; 85730; 87086; 94003; 94150; 96361; 96374; 96375; 99291; J2250; J2405; J7030